=== PATIENT | female | born 2000 | race African-American/Black ===

== ENCOUNTER 2023-08-30 13:42 | Inpatient (IN) | payer MEDICAID, SELFPAY ==
[2023-08-30 15:46] VITALS: BP 113/79; PULSE 77; RESP 18; TEMP 36.5; O2SAT 98
[2023-08-30 15:47] VITALS: BMI 33.1
--- NOTE | 2023-08-30 16:01 | PC.ADMIT ---
Blanca arrived to the unit at 1355 from [facility], she signed Conditional Voluntary, sharp check done by show card writer and female nurse, Blanca has superficial scratches on left forearm, skin appears intact. Upon approach poor eye contact, appears guarded, close ended answers when answering questions, she reports feeling Tired, endorsing 10/10 anxiety and depression, she reports passive SI, stated There's nothing here but I think about a sharp object and cutting myself, when asked if she would seek out staff if urge to hurt self occurred stated Yes. She reports VH stated I see spiders crawling on the wall, she reports her appetite varies, and I can't sleep at night, I sleep during the day. Per assessment Krishna reported endorsing SI for a couple of months with no specific plan, she reports factors being endorsing depression, arguing with mom and recent college stressors, currently no community providers. Blanca is currently on 15 minute checks.
[2023-08-30 18:00] VITALS: BP 101/56; PULSE 68; RESP 16; TEMP 36.4; O2SAT 99
--- NOTE | 2023-08-30 20:16 | HO.PM.IMCN ---
History of Present Illness Data of Consult Service Date: 08/30/23 Primary Care Provider: Unknown Physician HPI Reason for consult: Admission H&P Pt is a 23-year-old female with a PMH significant for?GERD, anxiety, depression, and PTSD who is admitted to M3 psychiatry unit for increasing depression with SI with no specific plan. Patient has history of 3 prior SI attempts by cutting, hanging, and walking into traffic. Patient presents from [facility] after expressing vague SI during session there. Medical consult for admission H&P. ?Patient seen and evaluated at bedside where she is resting comfortably in bed. Patient denies any significant PMH other than GERD which is well-controlled with omeprazole. Patient denies any acute medical complaints at this time. Denies chest pain/pressure, palpitations. No shortness of breath. Denies fever, chills, nausea, vomiting, abdominal pain. No headache, acute vision changes. Review of Systems Review of Systems: Patient has no acute medical complaints at this time. [facility] Medical History (Updated 08/30/23 @ 20:24 by SAMUEL Crain) GERD (gastroesophageal reflux disease) Social History Household Members: Other Household Members Other:: On [facility] Housing: Other Housing Other:: Dorm Do you presently have visiting nurse or other home services: No Patient Tobacco Use Status: Never used Tobacco Use of substances other than those prescribed or required for medical reasons: No Have you been hit, kicked, punched, or otherwise hurt by someone within the past year? If so, by whom?: No Do you feel safe in your current relationship?: No Is there a partner from a previous relationship who is making you feel unsafe now?: No Are you made to feel afraid or neglected: No Spiritual Healthcare Practices: None Reported Gnosticist Healthcare Practices: None Reported Cultural Healthcare Practices: None Reported Advance Directives: No Advance Directives Information Provided: No (Declined) Do you have thoughts of harming others: None Do you have a plan to hurt others: No Plan Recently lost weight without trying: No Eating poorly because of decreased appetite: Yes Nutrition Risks: No Nutritional Risk Patient : No : No Poor oral hygiene: Yes Meds Allergies Allergy/AdvReac Type Severity Reaction Status Date / Time Unable to Assess Allergy Verified 08/30/23 13:45 Active Medications: Current Medications Acetaminophen (Acetaminophen 325 Mg Tablet) 650 mg PO Q6H PRN PRN Reason: Headache/Pain Mild Scale (1-3) Al Hydroxide/Mg Hydroxide (Magnesium Hydrox/Alum Hydrox 30 Ml Oral.Susp) 30 ml PO Q6H PRN PRN Reason: Heartburn/Nausea Hydroxyzine HCl (Hydroxyzine Hcl 25 Mg Tablet) 25 mg PO Q6H PRN PRN Reason: Anxiety Magnesium Hydroxide (Milk Of Magnesia 30 Ml Oral.Susp) 30 ml PO DAILY PRN PRN Reason: Constipation Nicotine Polacrilex (Nicotine Polacrilex 2 Mg Gum) 4 mg BUCCAL Q2H PRN PRN Reason: Nicotine Cravings Trazodone HCl (Trazodone Hcl 50 Mg Tablet) 50 mg PO BEDTIME MRX1 PRN PRN Reason: Insomnia Physical Exam Vital Signs and Narrative: Vital Signs: Last Vital Signs Temp 97.7 F 08/30/23 15:46 Pulse 77 08/30/23 15:46 Resp 18 08/30/23 15:46 BP 113/79 08/30/23 15:46 Pulse Ox 98 08/30/23 15:46 O2 Del Method Room Air 08/30/23 15:46 BMI result Body Mass Index 33.1 General: AOx3, no acute distress Resp: CTA bilaterally CVS: S1, S2, RRR GI: +BS, NT, no distention Skin: Warm, dry Neuro: Cranial nerves II-XII grossly intact bilaterally. Motor grossly intact bilaterally Extremities: No edema Psych: Flat affect Assessment and Plan (1) Medical clearance for psychiatric admission: Status: Acute Plan Pt is a 23-year-old female with a PMH significant for?GERD, anxiety, depression, and PTSD who is admitted to M3 psychiatry unit for increasing depression with SI with no specific plan. Patient has history of 3 prior SI attempts by cutting, hanging, and walking into traffic. Patient presents from [facility] after expressing vague SI during session there. Medical consult for admission H&P. ?Patient seen and evaluated at bedside where she is resting comfortably in bed. Patient denies any significant PMH other than GERD which is well-controlled with omeprazole. Mood disorder Plan as per Psychiatry GERD Continue PPI Patient otherwise has no chronic medical conditions or acute medical complaints. Thank you for allowing us to participate in the care of this patient. Signing off at this time. Please re-consult if any acute complaints or issues arise.
[2023-08-31 07:40] VITALS: BP 109/77; PULSE 70; RESP 16; TEMP 35.9; O2SAT 99
--- NOTE | 2023-08-31 09:11 | HO.PSYADMNOT ---
HPI Date of Service: 08/31/23 Chief Complaint: mental health crisis Sources of Information: patient interviewed, chart reviewed and crisis/core team assessment reviewed HPI Subjective Notes: [place] Warning and Conditional Voluntary Narrative: Patient is a 23 year old female with hx of MDD, PTSD and BPD who was seen at [facility] d/t suicidal ideation secondary to increased depression and life stressors such as arguing with her mother and school. Per crisis report, pt has had suicidal ideation for the last couple of months with no specific plan. Hx of previous attempts by cutting, hanging and walking through traffic. She is currently not seeing anyone in the community for her depression. During admission assessment, pt presents calm, cooperative. Pt stated, I'm having a lot of self harm and suicidal thoughts. What started it was an argument with my mom and school stress. I don't feel like I've been coping well with my stress. My mom thought I had marijuana but I told her I didn't and she started gas lighting me. I'm also behind on two of my classes. Patient reports she is currently not on any medications but has taken abilify and lamictal in the past; pt believes these were not beneficial in improving her mood. Patient reports suicidal ideation to cut herself. denies HI. She reports auditory hallucinations and visual hallucinations of spiders . Past Psychiatric History: Patient reports hx of 4 psychiatric hospitalizations. Last hospitalization was when she was 18 years old. Does not have outpatient therapist; saw a psychiatrist in April 2023. past medication trials: abilify, lamicital. 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 When home, lives with mother and mothers boyfriend. Substance History: denies Trauma History: yes Diagnostics Vital Signs (24Hr): Vital Signs - 24 hr 08/30/23 15:46 08/30/23 18:00 08/31/23 07:40 Temperature 97.7 F 97.5 F 96.7 F L Pulse Rate 77 68 70 Respiratory Rate 18 16 16 Blood Pressure 113/79 101/56 L 109/77 Pulse Oximetry 98 99 99 Oxygen Delivery Method Room Air Room Air Room Air BMI result Body Mass Index 33.1 Meds/Allergies Allergies Allergies Allergy/AdvReac Type Severity Reaction Status Date / Time Unable to Assess Allergy Verified 08/30/23 13:45 Mental Status Exam Mental Status Exam Narrative: Pt is alert and oriented; behavior is cooperative and calm; dressed in hospital attire; mood is described as depressed ; eye contact appropriate; Speech is normal rate, volume and prosody and not pressured; thought process is organized and goal directed; Thought content is on tx; denies HI. Pt reports suicidal ideation with plan to cut herself. She reports auditory and visual hallucinations. Assessment & Plan Assessment & Plan (1) MDD (major depressive disorder): Status: Acute Code(s): F32.9 - Major depressive disorder, single episode, unspecified (2) PTSD (post-traumatic stress disorder): Status: Acute Code(s): F43.10 - Post-traumatic stress disorder, unspecified (3) Borderline personality disorder: Status: Acute Code(s): F60.3 - Borderline personality disorder Plan Patient is a 23 year old female with hx of MDD, PTSD and BPD who was seen at [facility] d/t suicidal ideation secondary to increased depression and life stressors such as arguing with her mother and school. Plan: CV 15 minute safety checks obtain collateral referral to outpatient therapist and prescriber Start: Prozac 10mg PO daily Seroquel 25mg PO BID Patient educated on: diagnosis, medication risk/benefits and therapeutic strategies Informed Consent: understands Reason for continued inpatient stay Substantial Risk for: harm to self and med/psych decompensation Statement Statement: I have reviewed the history and physical and performed a pertinent examination on my patient. No changes have occurred unless specified. If the History and Physical was not performed prior to admission, the Hospitalist's service will be consulted for completing the admission physical. Time Spent With Patient Time: Total time managing care of this patient today _60___ minutes.
[2023-08-31 19:40] VITALS: BP 102/50; PULSE 76; RESP 18; TEMP 36.8; O2SAT 98
[2023-08-31 21:00] VITALS: BP 110/64
[2023-08-31] MEDS: QUEtiapine Fumarate 25 MG TABLET PO (21:22)
[2023-09-01 07:50] VITALS: BP 111/70; PULSE 70; RESP 16; TEMP 33.4; O2SAT 98
[2023-09-01] MEDS: QUEtiapine Fumarate 25 MG TABLET PO ×2 (08:39→21:01)
[2023-09-01] MEDS: FLUoxetine HCl 10 MG CAPSULE PO (09:03)
--- NOTE | 2023-09-01 11:02 | P.PNPSI_ITS ---
Subjective Subjective Date of Service: 09/01/23 Reason For Visit: mental health crisis Subjective Notes: Conditional Voluntary Medical Problems Affecting Mental Status: No Interim History: Sleeping and eating OK. Feels slower than usual when asked about side effects. Has been isolative with depressed affect. Still having SI and urges to self harm. Denies having means to do so here. Medication Compliance: Yes Side effects from medications: Yes (slight sedation, seroquel just started) Attending Groups: Intermittent Review of Systems Acute medical concerns: No Medical Review of Systems: unchanged Mental Status Exam Mental Status Exam Patient Appearance: Well Grooomed and Fatigued Patient Orientation: Person, Place, Time and Situation Level of Consciousness: Alert Patient Behavior: Appropriate and Poor Eye Contact Mood Description: Withdrawn Affect Description: Constricted Patient Cognition Impaired: No Speech Pattern: Clear Memory Description: Intact Hallucinations: Auditory Delusions: Not Present Thought Process: Intact Thought Content: positive for Linear Depressive Symptoms: Sleeping More Than Usual, Thoughts of /Suicide, Loss of Energy and Difficulty Concentrating Judgement: Fair Diagnostics Vital Signs (24Hr): Vital Signs - 24 hr 08/31/23 19:40 08/31/23 21:00 09/01/23 07:50 Temperature 98.2 F 92.1 F L Pulse Rate 76 70 Respiratory Rate 18 16 Blood Pressure 102/50 L 110/64 111/70 Pulse Oximetry 98 98 Oxygen Delivery Method Room Air Room Air BMI result Body Mass Index 33.1 Medications Medications Current Medications Acetaminophen (Acetaminophen 325 Mg Tablet) 650 mg PO Q6H PRN PRN Reason: Headache/Pain Mild Scale (1-3) Al Hydroxide/Mg Hydroxide (Magnesium Hydrox/Alum Hydrox 30 Ml Oral.Susp) 30 ml PO Q6H PRN PRN Reason: Heartburn/Nausea Fluoxetine HCl (Fluoxetine Hcl 10 Mg Capsule) 10 mg PO DAILY [facility] Last Admin: 09/01/23 09:03 Dose: 10 mg Hydroxyzine HCl (Hydroxyzine Hcl 25 Mg Tablet) 25 mg PO Q6H PRN PRN Reason: Anxiety Magnesium Hydroxide (Milk Of Magnesia 30 Ml Oral.Susp) 30 ml PO DAILY PRN PRN Reason: Constipation Quetiapine Fumarate (Quetiapine Fumarate 25 Mg Tablet) 25 mg PO BID [facility] Last Admin: 09/01/23 08:39 Dose: 25 mg Trazodone HCl (Trazodone Hcl 50 Mg Tablet) 50 mg PO BEDTIME MRX1 PRN PRN Reason: Insomnia Allergies Allergies Allergy/AdvReac Type Severity Reaction Status Date / Time Unable to Assess Allergy Verified 08/30/23 13:45 Assessment & Plan Assessment & Plan (1) MDD (major depressive disorder): Status: Acute Code(s): F32.9 - Major depressive disorder, single episode, unspecified Assessment and Plan: Continue prozac and seroquel that were just started (2) PTSD (post-traumatic stress disorder): Status: Acute Code(s): F43.10 - Post-traumatic stress disorder, unspecified (3) Borderline personality disorder: Status: Acute Code(s): F60.3 - Borderline personality disorder Assessment and Plan: Monitor for SIB urges Plan Patient is a 23 year old female with hx of MDD, PTSD and BPD who was seen at [facility] d/t suicidal ideation secondary to increased depression and life stressors such as arguing with her mother and school. Plan: CV 15 minute safety checks obtain collateral referral to outpatient therapist and prescriber Start: Prozac 10mg PO daily Seroquel 25mg PO BID Reason for continued inpatient stay Substantial Risk for: harm to self Time Spent With Patient Time: Total time managing care of this patient today ____ minutes.
[2023-09-01 19:55] VITALS: BP 125/72; PULSE 79; RESP 16; TEMP 36.5; O2SAT 98
[2023-09-02 07:50] VITALS: BP 114/66; PULSE 74; RESP 16; TEMP 35.7; O2SAT 98
--- NOTE | 2023-09-02 08:30 | HO.PSYCHPN ---
Subjective Subjective Date of Service: 09/02/23 Reason For Visit: mental health crisis Subjective Notes: Conditional Voluntary Interim History: Patient was seen and discussed in rounds today. Records and plans were reviewed. She continues to be isolative. Attending art group. Continues to have some anxiety and depression and passive SI. No plans or danger. Sleeping adequately. Continues to have some visual hallucinations. No complaints or side effects other than some sedation. No changes were made today Review of Systems Review of Systems Yes all other systems are reviewed and are negative Mental Status Exam Mental Status Exam Patient Appearance: Well Grooomed and Fatigued Patient Orientation: Person, Place, Time and Situation Level of Consciousness: Alert Patient Behavior: Appropriate and Poor Eye Contact Mood Description: Withdrawn Affect Description: Constricted Patient Cognition Impaired: No Speech Pattern: Clear Memory Description: Intact Hallucinations: Auditory Delusions: Not Present Thought Process: Intact Thought Content: positive for Linear Depressive Symptoms: Sleeping More Than Usual, Thoughts of /Suicide, Loss of Energy and Difficulty Concentrating Judgement: Fair Diagnostics Vital Signs (24Hr): Vital Signs - 24 hr 09/01/23 19:55 Temperature 97.7 F Pulse Rate 79 Respiratory Rate 16 Blood Pressure 125/72 Pulse Oximetry 98 Oxygen Delivery Method Room Air BMI result Body Mass Index 33.1 Medications Medications Current Medications Acetaminophen (Acetaminophen 325 Mg Tablet) 650 mg PO Q6H PRN PRN Reason: Headache/Pain Mild Scale (1-3) Al Hydroxide/Mg Hydroxide (Magnesium Hydrox/Alum Hydrox 30 Ml Oral.Susp) 30 ml PO Q6H PRN PRN Reason: Heartburn/Nausea Fluoxetine HCl (Fluoxetine Hcl 10 Mg Capsule) 10 mg PO DAILY [facility] Last Admin: 09/01/23 09:03 Dose: 10 mg Hydroxyzine HCl (Hydroxyzine Hcl 25 Mg Tablet) 25 mg PO Q6H PRN PRN Reason: Anxiety Magnesium Hydroxide (Milk Of Magnesia 30 Ml Oral.Susp) 30 ml PO DAILY PRN PRN Reason: Constipation Quetiapine Fumarate (Quetiapine Fumarate 25 Mg Tablet) 25 mg PO BID [facility] Last Admin: 09/01/23 21:01 Dose: 25 mg Trazodone HCl (Trazodone Hcl 50 Mg Tablet) 50 mg PO BEDTIME MRX1 PRN PRN Reason: Insomnia Allergies Allergies Allergy/AdvReac Type Severity Reaction Status Date / Time Unable to Assess Allergy Verified 08/30/23 13:45 Assessment & Plan Assessment & Plan (1) MDD (major depressive disorder): Status: Acute Code(s): F32.9 - Major depressive disorder, single episode, unspecified Assessment and Plan: Continue prozac and seroquel that were just started (2) PTSD (post-traumatic stress disorder): Status: Acute Code(s): F43.10 - Post-traumatic stress disorder, unspecified (3) Borderline personality disorder: Status: Acute Code(s): F60.3 - Borderline personality disorder Assessment and Plan: Monitor for SIB urges Plan Patient is a 23 year old female with hx of MDD, PTSD and BPD who was seen at [facility] d/t suicidal ideation secondary to increased depression and life stressors such as arguing with her mother and school. Plan: CV 15 minute safety checks obtain collateral referral to outpatient therapist and prescriber Start: Prozac 10mg PO daily Seroquel 25mg PO BID 09/02: Continue current plans and regimen Reason for continued inpatient stay Substantial Risk for: med/psych decompensation Time Spent With Patient Time: Total time managing care of this patient today ____ minutes.
[2023-09-02] MEDS: FLUoxetine HCl 10 MG CAPSULE PO (08:35)
[2023-09-02] MEDS: QUEtiapine Fumarate 25 MG TABLET PO ×2 (08:36→21:37)
[2023-09-02 21:05] VITALS: BP 117/70; PULSE 63; RESP 14; TEMP 36.7; O2SAT 99
[2023-09-02] MEDS: traZODone HCL 50 MG TABLET PO (21:37)
--- NOTE | 2023-09-03 03:05 | PC.NURSE ---
Blanca was noted to be mainly isolating throughout the evening. she was out of bed for a phone call and her HS medications. she denies suicidal/homicidal ideation and auditory hallucinations but endorses, visual hallucinations of spiders and rates her anxiety a 10 and her depression an 8. no behavioral concerns, monitor for safety, continue Plan of Care
[2023-09-03 07:15] VITALS: BP 109/63; PULSE 68; RESP 16; TEMP 36; O2SAT 100
[2023-09-03] MEDS: QUEtiapine Fumarate 25 MG TABLET PO (08:46)
[2023-09-03] MEDS: FLUoxetine HCl 10 MG CAPSULE PO (08:46)
--- NOTE | 2023-09-03 09:16 | P.PNPSI_ITS ---
Subjective Subjective Date of Service: 09/03/23 Reason For Visit: mental health crisis Subjective Notes: Conditional Voluntary Interim History: Reviewed with . Keeping to self. Pt reports feeling better than when I first came in ; Pt stated, I still feel very anxious but not as depressed. I'm not really thinking about suicide. I'm more hopeful and wanting to live . Pt reports she spoke to her mother about the argument that had prior to admission. Pt reports she continues to have auditory and visual hallucinations; pt stated, I hear the voices a couple times a day and I'm not seeing the spiders as much . Increase Seroquel to 25mg PO daily and 50mg PO bedtime. Medication Compliance: Yes Side effects from medications: No Attending Groups: Intermittent Review of Systems Constitutional: Reports as per HPI Eyes: Reports as per HPI Reports as per HPI Cardiovascular: Reports as per HPI Respiratory: Reports as per HPI Gastrointestinal: Reports as per HPI Genitourinary: Reports as per HPI Musculoskeletal: Reports as per HPI Skin/Breast: Reports as per HPI Reports as per HPI Psychiatric: Reports as per HPI Endocrine: Reports as per HPI Hematologic/Lymphatic: Reports as per HPI Allergic/Immunologic: Reports as per HPI Mental Status Exam Mental Status Exam Narrative: Pt is alert and oriented; behavior is cooperative and calm; dressed in hospital attire; mood is described as anxious ; eye contact appropriate; Speech is normal rate, volume and prosody and not pressured; thought process is organized and goal directed; Thought content is on tx; denies SI/HI. She reports auditory and visual hallucinations. Diagnostics Vital Signs (24Hr): Vital Signs - 24 hr 09/02/23 21:05 09/03/23 07:15 Temperature 98.1 F 96.8 F Pulse Rate 63 68 Respiratory Rate 14 16 Blood Pressure 117/70 109/63 Pulse Oximetry 99 100 Oxygen Delivery Method Room Air Room Air BMI result Body Mass Index 33.1 Medications Medications Current Medications Acetaminophen (Acetaminophen 325 Mg Tablet) 650 mg PO Q6H PRN PRN Reason: Headache/Pain Mild Scale (1-3) Al Hydroxide/Mg Hydroxide (Magnesium Hydrox/Alum Hydrox 30 Ml Oral.Susp) 30 ml PO Q6H PRN PRN Reason: Heartburn/Nausea Fluoxetine HCl (Fluoxetine Hcl 10 Mg Capsule) 10 mg PO DAILY [facility] Last Admin: 09/03/23 08:46 Dose: 10 mg Hydroxyzine HCl (Hydroxyzine Hcl 25 Mg Tablet) 25 mg PO Q6H PRN PRN Reason: Anxiety Magnesium Hydroxide (Milk Of Magnesia 30 Ml Oral.Susp) 30 ml PO DAILY PRN PRN Reason: Constipation Quetiapine Fumarate (Quetiapine Fumarate 25 Mg Tablet) 25 mg PO BID [facility] Last Admin: 09/03/23 08:46 Dose: 25 mg Trazodone HCl (Trazodone Hcl 50 Mg Tablet) 50 mg PO BEDTIME MRX1 PRN PRN Reason: Insomnia Last Admin: 09/02/23 21:37 Dose: 50 mg Allergies Allergies Allergy/AdvReac Type Severity Reaction Status Date / Time Unable to Assess Allergy Verified 08/30/23 13:45 Assessment & Plan Assessment & Plan (1) MDD (major depressive disorder): Status: Acute Code(s): F32.9 - Major depressive disorder, single episode, unspecified Assessment and Plan: Continue prozac and seroquel that were just started (2) PTSD (post-traumatic stress disorder): Status: Acute Code(s): F43.10 - Post-traumatic stress disorder, unspecified (3) Borderline personality disorder: Status: Acute Code(s): F60.3 - Borderline personality disorder Assessment and Plan: Monitor for SIB urges Plan Patient is a 23 year old female with hx of MDD, PTSD and BPD who was seen at [facility] d/t suicidal ideation secondary to increased depression and life stressors such as arguing with her mother and school. Plan: CV 15 minute safety checks obtain collateral referral to outpatient therapist and prescriber Start: Prozac 10mg PO daily Seroquel 25mg PO BID 09/02: Continue current plans and regimen 09/03: Keeping to self. Pt reports feeling better than when I first came in ; Pt stated, I still feel very anxious but not as depressed. I'm not really thinking about suicide. I'm more hopeful and wanting to live . Pt reports she spoke to her mother about the argument that had prior to admission. Pt reports she continues to have auditory and visual hallucinations; pt stated, I hear the voices a couple times a day and I'm not seeing the spiders as much . Increase Seroquel to 25mg PO daily and 50mg PO bedtime. Patient educated on: diagnosis, medication risk/benefits and therapeutic strategies Informed Consent: understands Reason for continued inpatient stay Substantial Risk for: med/psych decompensation Time Spent With Patient Time: Total time managing care of this patient today _20___ minutes.
[2023-09-03 18:00] VITALS: BP 110/62; PULSE 68; RESP 16; TEMP 36.4; O2SAT 98
[2023-09-03] MEDS: traZODone HCL 50 MG TABLET PO (21:18)
[2023-09-03] MEDS: QUEtiapine Fumarate 50 MG TABLET PO (21:18)
[2023-09-04 08:17] VITALS: BP 108/64; PULSE 69; RESP 16; TEMP 36.7; O2SAT 99
--- NOTE | 2023-09-04 08:39 | HO.PSYCHPN ---
Subjective Subjective Date of Service: 09/04/23 Reason For Visit: mental health crisis Subjective Notes: Conditional Voluntary Interim History: Reviewed with . Pt reports feeling happy today; pt stated, I woke up feeling happy today. I'm having some anxiety but not really depressed . Pt reports she feels ready to go back to school . denies SI/HI/VH/AH. Pt reports she plans on following up with outpatient providers and would be interested in attending either PHP or a DBT program online; social service technician aware. Medication Compliance: Yes Side effects from medications: No Attending Groups: Intermittent Review of Systems Constitutional: Reports as per HPI Eyes: Reports as per HPI Reports as per HPI Cardiovascular: Reports as per HPI Respiratory: Reports as per HPI Gastrointestinal: Reports as per HPI Musculoskeletal: Reports as per HPI Skin/Breast: Reports as per HPI Reports as per HPI Psychiatric: Reports as per HPI Endocrine: Reports as per HPI Hematologic/Lymphatic: Reports as per HPI Allergic/Immunologic: Reports as per HPI Mental Status Exam Mental Status Exam Narrative: Pt is alert and oriented; behavior is cooperative and calm; dressed in hospital attire; mood is described as happy ; eye contact appropriate; Speech is normal rate, volume and prosody and not pressured; thought process is organized and goal directed; Thought content is on tx; denies SI/HI/AH/VH. Diagnostics Vital Signs (24Hr): Vital Signs - 24 hr 09/03/23 18:00 09/04/23 08:17 Temperature 97.5 F 98.0 F Pulse Rate 68 69 Respiratory Rate 16 16 Blood Pressure 110/62 108/64 Pulse Oximetry 98 99 Oxygen Delivery Method Room Air Room Air BMI result Body Mass Index 33.1 Medications Medications Current Medications Acetaminophen (Acetaminophen 325 Mg Tablet) 650 mg PO Q6H PRN PRN Reason: Headache/Pain Mild Scale (1-3) Al Hydroxide/Mg Hydroxide (Magnesium Hydrox/Alum Hydrox 30 Ml Oral.Susp) 30 ml PO Q6H PRN PRN Reason: Heartburn/Nausea Fluoxetine HCl (Fluoxetine Hcl 10 Mg Capsule) 10 mg PO DAILY [facility] Last Admin: 09/03/23 08:46 Dose: 10 mg Hydroxyzine HCl (Hydroxyzine Hcl 25 Mg Tablet) 25 mg PO Q6H PRN PRN Reason: Anxiety Magnesium Hydroxide (Milk Of Magnesia 30 Ml Oral.Susp) 30 ml PO DAILY PRN PRN Reason: Constipation Quetiapine Fumarate (Quetiapine Fumarate 25 Mg Tablet) 25 mg PO DAILY [facility] Quetiapine Fumarate (Quetiapine Fumarate 50 Mg Tablet) 50 mg PO BEDTIME [facility] Last Admin: 09/03/23 21:18 Dose: 50 mg Trazodone HCl (Trazodone Hcl 50 Mg Tablet) 50 mg PO BEDTIME MRX1 PRN PRN Reason: Insomnia Last Admin: 09/03/23 21:18 Dose: 50 mg Allergies Allergies Allergy/AdvReac Type Severity Reaction Status Date / Time Unable to Assess Allergy Verified 08/30/23 13:45 Assessment & Plan Assessment & Plan (1) MDD (major depressive disorder): Status: Acute Code(s): F32.9 - Major depressive disorder, single episode, unspecified Assessment and Plan: Continue prozac and seroquel that were just started (2) PTSD (post-traumatic stress disorder): Status: Acute Code(s): F43.10 - Post-traumatic stress disorder, unspecified (3) Borderline personality disorder: Status: Acute Code(s): F60.3 - Borderline personality disorder Assessment and Plan: Monitor for SIB urges Plan Patient is a 23 year old female with hx of MDD, PTSD and BPD who was seen at [facility] d/t suicidal ideation secondary to increased depression and life stressors such as arguing with her mother and school. Plan: CV 15 minute safety checks obtain collateral referral to outpatient therapist and prescriber Start: Prozac 10mg PO daily Seroquel 25mg PO BID 09/02: Continue current plans and regimen 09/03: Keeping to self. Pt reports feeling better than when I first came in ; Pt stated, I still feel very anxious but not as depressed. I'm not really thinking about suicide. I'm more hopeful and wanting to live . Pt reports she spoke to her mother about the argument that had prior to admission. Pt reports she continues to have auditory and visual hallucinations; pt stated, I hear the voices a couple times a day and I'm not seeing the spiders as much . Increase Seroquel to 25mg PO daily and 50mg PO bedtime. 09/04: Pt reports feeling happy today; pt stated, I woke up feeling happy today. I'm having some anxiety but not really depressed . Pt reports she feels ready to go back to school . denies SI/HI/VH/AH. Pt reports she plans on following up with outpatient providers and would be interested in attending either PHP or a DBT program online; social service technician aware. Changed Seroquel to 75mg PO bedtime. DC morning dose. Patient educated on: diagnosis, medication risk/benefits and therapeutic strategies Informed Consent: understands Reason for continued inpatient stay Substantial Risk for: med/psych decompensation Time Spent With Patient Time: Total time managing care of this patient today _20___ minutes.
[2023-09-04] MEDS: FLUoxetine HCl 10 MG CAPSULE PO (09:12)
[2023-09-04] MEDS: QUEtiapine Fumarate 25 MG TABLET PO (09:12)
[2023-09-04 19:45] VITALS: BP 117/73; PULSE 87; RESP 16; TEMP 36.2; O2SAT 98
[2023-09-04] MEDS: QUEtiapine Fumarate 25 MG TABLET 75 MG PO (21:19)
[2023-09-04] MEDS: traZODone HCL 50 MG TABLET PO (21:19)
--- NOTE | 2023-09-05 08:25 | HO.PSYCHPN ---
Subjective Subjective Date of Service: 09/05/23 Reason For Visit: mental health crisis Subjective Notes: Conditional Voluntary Interim History: Reviewed with . Pt reports feeling good today; pt stated, nothing is bothering me really. I spoke with my mom again and it went well . Pt reports she plans on following up with outpatient providers and is looking forward to returning to school. denies SI/HI/VH/AH. Plan to discharge Sunday. Medication Compliance: Yes Side effects from medications: No Attending Groups: Intermittent Review of Systems Constitutional: Reports as per HPI Eyes: Reports as per HPI Reports as per HPI Cardiovascular: Reports as per HPI Respiratory: Reports as per HPI Gastrointestinal: Reports as per HPI Genitourinary: Reports as per HPI Musculoskeletal: Reports as per HPI Skin/Breast: Reports as per HPI Reports as per HPI Psychiatric: Reports as per HPI Endocrine: Reports as per HPI Hematologic/Lymphatic: Reports as per HPI Allergic/Immunologic: Reports as per HPI Mental Status Exam Mental Status Exam Narrative: Pt is alert and oriented; behavior is cooperative and calm; dressed in hospital attire; mood is described as good ; eye contact appropriate; Speech is normal rate, volume and prosody and not pressured; thought process is organized and goal directed; Thought content is on tx; denies SI/HI/AH/VH. Diagnostics Vital Signs (24Hr): Vital Signs - 24 hr 09/04/23 19:45 Temperature 97.2 F Pulse Rate 87 Respiratory Rate 16 Blood Pressure 117/73 Pulse Oximetry 98 Oxygen Delivery Method Room Air BMI result Body Mass Index 33.1 Medications Medications Current Medications Acetaminophen (Acetaminophen 325 Mg Tablet) 650 mg PO Q6H PRN PRN Reason: Headache/Pain Mild Scale (1-3) Al Hydroxide/Mg Hydroxide (Magnesium Hydrox/Alum Hydrox 30 Ml Oral.Susp) 30 ml PO Q6H PRN PRN Reason: Heartburn/Nausea Fluoxetine HCl (Fluoxetine Hcl 10 Mg Capsule) 10 mg PO DAILY [facility] Last Admin: 09/04/23 09:12 Dose: 10 mg Hydroxyzine HCl (Hydroxyzine Hcl 25 Mg Tablet) 25 mg PO Q6H PRN PRN Reason: Anxiety Magnesium Hydroxide (Milk Of Magnesia 30 Ml Oral.Susp) 30 ml PO DAILY PRN PRN Reason: Constipation Quetiapine Fumarate (Quetiapine Fumarate 25 Mg Tablet) 75 mg PO BEDTIME [facility] Last Admin: 09/04/23 21:19 Dose: 75 mg Trazodone HCl (Trazodone Hcl 50 Mg Tablet) 50 mg PO BEDTIME MRX1 PRN PRN Reason: Insomnia Last Admin: 09/04/23 21:19 Dose: 50 mg Allergies Allergies Allergy/AdvReac Type Severity Reaction Status Date / Time Unable to Assess Allergy Verified 08/30/23 13:45 Assessment & Plan Assessment & Plan (1) MDD (major depressive disorder): Status: Acute Code(s): F32.9 - Major depressive disorder, single episode, unspecified Assessment and Plan: Continue prozac and seroquel that were just started (2) PTSD (post-traumatic stress disorder): Status: Acute Code(s): F43.10 - Post-traumatic stress disorder, unspecified (3) Borderline personality disorder: Status: Acute Code(s): F60.3 - Borderline personality disorder Assessment and Plan: Monitor for SIB urges Plan Patient is a 23 year old female with hx of MDD, PTSD and BPD who was seen at [facility] d/t suicidal ideation secondary to increased depression and life stressors such as arguing with her mother and school. Plan: CV 15 minute safety checks obtain collateral referral to outpatient therapist and prescriber Start: Prozac 10mg PO daily Seroquel 25mg PO BID 09/02: Continue current plans and regimen 09/03: Keeping to self. Pt reports feeling better than when I first came in ; Pt stated, I still feel very anxious but not as depressed. I'm not really thinking about suicide. I'm more hopeful and wanting to live . Pt reports she spoke to her mother about the argument that had prior to admission. Pt reports she continues to have auditory and visual hallucinations; pt stated, I hear the voices a couple times a day and I'm not seeing the spiders as much . Increase Seroquel to 25mg PO daily and 50mg PO bedtime. 09/04: Pt reports feeling happy today; pt stated, I woke up feeling happy today. I'm having some anxiety but not really depressed . Pt reports she feels ready to go back to school . denies SI/HI/VH/AH. Pt reports she plans on following up with outpatient providers and would be interested in attending either PHP or a DBT program online; social media specialist aware. Changed Seroquel to 75mg PO bedtime. DC morning dose. 09/05: Pt reports feeling good today; pt stated, nothing is bothering me really. I spoke with my mom again and it went well . Pt reports she plans on following up with outpatient providers and is looking forward to returning to school. denies SI/HI/VH/AH. Plan to discharge Sunday. Patient educated on: diagnosis, medication risk/benefits and therapeutic strategies Informed Consent: understands Reason for continued inpatient stay Substantial Risk for: med/psych decompensation Time Spent With Patient Time: Total time managing care of this patient today _20___ minutes.
[2023-09-05] MEDS: FLUoxetine HCl 10 MG CAPSULE PO (08:45)
[2023-09-05 08:50] VITALS: BP 106/61; PULSE 69; RESP 16; TEMP 36.1; O2SAT 99
[2023-09-05] MEDS: Milk of Magnesia 30 ML ORAL.SUSP PO (10:38)
[2023-09-05] MEDS: traZODone HCL 50 MG TABLET PO (22:04)
[2023-09-05] MEDS: QUEtiapine Fumarate 25 MG TABLET 75 MG PO (22:04)
[2023-09-05 22:15] VITALS: BP 114/58; PULSE 79; RESP 16; TEMP 36.6; O2SAT 98
[2023-09-06 07:46] VITALS: BP 114/57; PULSE 79; RESP 14; TEMP 36.2; O2SAT 100
[2023-09-06] MEDS: FLUoxetine HCl 10 MG CAPSULE PO (08:36)
--- NOTE | 2023-09-06 08:55 | P.PNPSI_ITS ---
Subjective Subjective Date of Service: 09/06/23 Reason For Visit: mental health crisis Subjective Notes: Conditional Voluntary Interim History: Reviewed with . Pt reports feeling okay today; pt stated, I'm feeling ready to go back to school . denies SI/HI/VH/AH. Medication Compliance: Yes Side effects from medications: No Attending Groups: Intermittent Review of Systems Constitutional: Reports as per HPI Eyes: Reports as per HPI Reports as per HPI Cardiovascular: Reports as per HPI Respiratory: Reports as per HPI Gastrointestinal: Reports as per HPI Genitourinary: Reports as per HPI Musculoskeletal: Reports as per HPI Skin/Breast: Reports as per HPI Reports as per HPI Psychiatric: Reports as per HPI Endocrine: Reports as per HPI Hematologic/Lymphatic: Reports as per HPI Allergic/Immunologic: Reports as per HPI Mental Status Exam Mental Status Exam Narrative: Pt is alert and oriented; behavior is cooperative and calm; dressed in hospital attire; mood is described as okay ; eye contact appropriate; Speech is normal rate, volume and prosody and not pressured; thought process is organized and goal directed; Thought content is on tx; denies SI/HI/AH/VH. Diagnostics Vital Signs (24Hr): Vital Signs - 24 hr 09/05/23 22:15 09/06/23 07:46 Temperature 97.9 F 97.2 F Pulse Rate 79 79 Respiratory Rate 16 14 Blood Pressure 114/58 L 114/57 L Pulse Oximetry 98 100 Oxygen Delivery Method Room Air Room Air BMI result Body Mass Index 33.1 Medications Medications Current Medications Acetaminophen (Acetaminophen 325 Mg Tablet) 650 mg PO Q6H PRN PRN Reason: Headache/Pain Mild Scale (1-3) Al Hydroxide/Mg Hydroxide (Magnesium Hydrox/Alum Hydrox 30 Ml Oral.Susp) 30 ml PO Q6H PRN PRN Reason: Heartburn/Nausea Fluoxetine HCl (Fluoxetine Hcl 10 Mg Capsule) 10 mg PO DAILY [facility] Last Admin: 09/06/23 08:36 Dose: 10 mg Hydroxyzine HCl (Hydroxyzine Hcl 25 Mg Tablet) 25 mg PO Q6H PRN PRN Reason: Anxiety Magnesium Hydroxide (Milk Of Magnesia 30 Ml Oral.Susp) 30 ml PO DAILY PRN PRN Reason: Constipation Last Admin: 09/05/23 10:38 Dose: 30 ml Quetiapine Fumarate (Quetiapine Fumarate 25 Mg Tablet) 75 mg PO BEDTIME [facility] Last Admin: 09/05/23 22:04 Dose: 75 mg Trazodone HCl (Trazodone Hcl 50 Mg Tablet) 50 mg PO BEDTIME MRX1 PRN PRN Reason: Insomnia Last Admin: 09/05/23 22:04 Dose: 50 mg Allergies Allergies Allergy/AdvReac Type Severity Reaction Status Date / Time Unable to Assess Allergy Verified 08/30/23 13:45 Assessment & Plan Assessment & Plan (1) MDD (major depressive disorder): Status: Acute Code(s): F32.9 - Major depressive disorder, single episode, unspecified Assessment and Plan: Continue prozac and seroquel that were just started (2) PTSD (post-traumatic stress disorder): Status: Acute Code(s): F43.10 - Post-traumatic stress disorder, unspecified (3) Borderline personality disorder: Status: Acute Code(s): F60.3 - Borderline personality disorder Assessment and Plan: Monitor for SIB urges Plan Patient is a 23 year old female with hx of MDD, PTSD and BPD who was seen at [facility] d/t suicidal ideation secondary to increased depression and life stressors such as arguing with her mother and school. Plan: CV 15 minute safety checks obtain collateral referral to outpatient therapist and prescriber Start: Prozac 10mg PO daily Seroquel 25mg PO BID 09/02: Continue current plans and regimen 09/03: Keeping to self. Pt reports feeling better than when I first came in ; Pt stated, I still feel very anxious but not as depressed. I'm not really thinking about suicide. I'm more hopeful and wanting to live . Pt reports she spoke to her mother about the argument that had prior to admission. Pt reports she continues to have auditory and visual hallucinations; pt stated, I hear the voices a couple times a day and I'm not seeing the spiders as much . Increase Seroquel to 25mg PO daily and 50mg PO bedtime. 09/04: Pt reports feeling happy today; pt stated, I woke up feeling happy today. I'm having some anxiety but not really depressed . Pt reports she feels ready to go back to school . denies SI/HI/VH/AH. Pt reports she plans on following up with outpatient providers and would be interested in attending either PHP or a DBT program online; social contact worker aware. Changed Seroquel to 75mg PO bedtime. DC morning dose. 09/05: Pt reports feeling good today; pt stated, nothing is bothering me delia lly. I spoke with my mom again and it went well . Pt reports she plans on following up with outpatient providers and is looking forward to returning to school. denies SI/HI/VH/AH. Plan to discharge Sunday. 09/06: Pt reports feeling okay today; pt stated, I'm feeling ready to go back to school . denies SI/HI/VH/AH. Continue tx plan. Patient educated on: diagnosis, medication risk/benefits and therapeutic strategies Informed Consent: understands Reason for continued inpatient stay Substantial Risk for: stable for discharge Time Spent With Patient Time: Total time managing care of this patient today _20___ minutes.
[2023-09-06] MEDS: hydrOXYzine HCL 25 MG TABLET PO (12:03)
[2023-09-06 12:58] VITALS: BMI 34.0
[2023-09-06 20:30] VITALS: BP 133/72; PULSE 86; RESP 16; TEMP 36.3; O2SAT 98
[2023-09-06] MEDS: traZODone HCL 50 MG TABLET PO (22:05)
[2023-09-06] MEDS: QUEtiapine Fumarate 25 MG TABLET 75 MG PO (22:05)
[2023-09-07 07:30] VITALS: BP 116/57; PULSE 82; RESP 18; TEMP 36.7; O2SAT 99
[2023-09-07] MEDS: FLUoxetine HCl 10 MG CAPSULE PO (08:25)
--- NOTE | 2023-09-12 14:28 | P.DS_ITS ---
DS: Providers Provider Date of Service: 09/07/23 Date of admission: 08/30/23 13:42 Date of discharge: 09/07/23 Primary care physician: Unknown Physician Admitting clinician: Kiersten Wong Attending physician on admission: Clay Londono Consults: 08/30/23 13:45 Consult to Hospitalist Routine Comment: Consulting Provider: Hospitalist Reason For Exam: OSH admission Attending physician on discharge: Clay Londono Discharging clinician: Kiersten Wong DS: Diagnosis Discharge Diagnosis (1) MDD (major depressive disorder): Status: Acute (2) PTSD (post-traumatic stress disorder): Status: Acute (3) Borderline personality disorder: Status: Acute DS: Medications Discharge Medications Home Medications: Previous Rx's Medication Instructions Recorded fluoxetine 10 mg capsule 10 mg PO DAILY 7 days #7 caps 09/06/23 quetiapine 25 mg tablet 75 mg (3 x 25 mg) PO BEDTIME 7 09/06/23 days #21 tabs trazodone 50 mg tablet 50 mg PO BEDTIME PRN Insomnia 30 09/07/23 days #30 tabs Mental Status Exam Mental Status Exam Narrative: Pt is alert and oriented; behavior is cooperative and calm; dressed in hospital attire; mood is described as good ; eye contact appropriate; Speech is normal rate, volume and prosody and not pressured; thought process is organized and goal directed; Thought content is on discharge; denies SI/HI/AH/VH. DS: Summary Hospital Course Hospital Course: Patient is a 23 year old female with hx of MDD, PTSD and BPD who was seen at [facility] d/t suicidal ideation secondary to increased depression and life stressors such as arguing with her mother and school. Per crisis report, pt has had suicidal ideation for the last couple of months with no specific plan. Hx of previous attempts by cutting, hanging and walking through traffic. She is currently not seeing anyone in the community for her depression. During admission assessment, pt presents calm, cooperative. Pt stated, I'm having a lot of self harm and suicidal thoughts. What started it was an argument with my mom and school stress. I don't feel like I've been coping well with my stress. My mom thought I had marijuana but I told her I didn't and she started gas lighting me. I'm also behind on two of my classes. Patient reports she is currently not on any medications but has taken abilify and lamictal in the past; pt believes these were not beneficial in improving her mood. Patient reports suicidal ideation to cut herself. denies HI. She reports auditory hallucinations and visual hallucinations of spiders . During hospital course, CV 15 minute safety checks referral to outpatient therapist and prescriber Start: Prozac 10mg PO daily Seroquel 25mg PO BID Keeping to self. Pt reports feeling better than when I first came in ; Pt stated, I still feel very anxious but not as depressed. I'm not really thinking about suicide. I'm more hopeful and wanting to live . Pt reports she spoke to her mother about the argument that had prior to admission. Pt reports she continues to have auditory and visual hallucinations; pt stated, I hear the voices a couple times a day and I'm not seeing the spiders as much . Increase Seroquel to 25mg PO daily and 50mg PO bedtime. Pt reports feeling happy today; pt stated, I woke up feeling happy today. I'm having some anxiety but not really depressed . Pt reports she feels ready to go back to school . denies SI/HI/VH/AH. Pt reports she plans on following up with outpatient providers and would be interested in attending either PHP or a DBT program online; licensed social worker aware. Changed Seroquel to 75mg PO bedtime. DC morning dose. Pt reports feeling good today; pt stated, nothing is bothering me really. I spoke with my mom again and it went well . Pt reports she plans on following up with outpatient providers and is looking forward to returning to school. denies SI/HI/VH/AH. Plan to discharge Sunday. Pt reports feeling okay today; pt stated, I'm feeling ready to go back to school . denies SI/HI/VH/AH. Pt reports she plans on following up with outpatient providers. Time spent discussing smoking cessation with patient: 3 to 10 minutes Status at Discharge Cognitive/behavioral status at discharge: Patient was interviewed prior to discharge and found to be fully oriented and without any SI or HI. Patient has insight and demonstrates good judgment in terms of wanting to pursue treatment. Patient has a safety plan that includes presenting to the closest ER or calling 911 if feeling unsafe. Functional status at discharge: independent ambulation Overall status at discharge: patient is back to baseline Time Spent with Patient Time attestation: Total time managing care of this patient today _30___ minutes. Time spent: Less than 30 minutes Discharge Plan Discharge Anticipated Discharge Date/Time: 09/07/23 11:30 Patient Disposition: Home, Self-Care Discharge Diagnosis: MDD, PTSD, Borderline personality d/o Referrals: Therapy & Psychiatry [Other] - 1 Week (*Please follow up with the central intake staff at the [facility] in regards to outpatient mental health treatment) [facility] [Other] - 09/28/23 2:00 pm (Pt's pcp is Dr Doris Pierce- appt scheduled for 09/28/23 @ 2pm) [facility] [Other] - 1 Week (Utilize [facility] if necessary prior to returning home September.) Discharge Medications: New fluoxetine 10 mg Capsule 10 mg PO DAILY 7 Days Qty: 7 3RF quetiapine 25 mg Tablet 75 mg PO BEDTIME 7 Days Qty: 21 3RF trazodone 50 mg Tablet 50 mg PO BEDTIME PRN (Reason: Insomnia) 30 Days Qty: 30 0RF Discharge Orders: Discharge Order (Routine); Ordered 09/07/23 Ordered By: Kiersten Wong Diet: Regular diet Activity on Discharge: As tolerated Stand Alone Forms: Patient Portal Discharge page, Community Support Care Plan Goals: Maintain mood and safe behaviors Take medications as prescribed Practice coping skills Continue with outpatient providers and reach out to them as needed Health Concerns: Mood stability and behaviors Plan of Treatment: Follow up with your PCP, psychiatric provider and other outpatient providers regarding above concerns Take medications as prescribed Assessment: Patient was interviewed prior to discharge and found to be fully oriented and without any SI or HI. Patient has insight and demonstrates good judgment in t erms of wanting to pursue treatment. Patient has a safety plan that includes presenting to the closest ER or calling 911 if feeling unsafe. Discharge Date/Time: 09/07/23 11:55
== END 2023-09-07 11:55 | disposition home or self-care (01) | DRG 752 ==
PROVIDERS: Admitting Provider Psychiatry & Neurology Psychiatry; Responsible Provider Registered Nurse; Visit Provider Psychiatry & Neurology Psychiatry
DX: F60.3 Borderline personality disorder (principal); R45.851 Suicidal ideations; F32.9 Major depressive disorder, single episode, unspecified; F43.10 Post-traumatic stress disorder, unspecified; K21.9 Gastro-esophageal reflux disease without esophagitis; Z79.899 Other long term (current) drug therapy

== ENCOUNTER → 2023-08-30 13:42 | Outpatient (BNV) | payer SELFPAY | PROVIDERS: Admitting Provider Psychiatry & Neurology Psychiatry; Visit Provider Student in an Organized Health Care Education/Training Program | DX: Z02.2 Encounter for examination for admission to residential institution (principal) | CPT/HCPCS: 99429 ==

== ENCOUNTER → 2023-08-30 13:42 | Outpatient (BNV) | payer MEDICAID, OTHER, SELFPAY | PROVIDERS: Admitting Provider Psychiatry & Neurology Psychiatry; Responsible Provider Registered Nurse; Visit Provider Psychiatry & Neurology Psychiatry | DX: F60.3 Borderline personality disorder (principal); F33.2 Major depressive disorder, recurrent severe without psychotic features; F43.11 Post-traumatic stress disorder, acute | CPT/HCPCS: 99231; 99232; 99233 ==